=== PATIENT | male | born 1980 | race Two or more races ===

== ENCOUNTER 2022-11-14 18:21 | Inpatient (IN) | payer BC ==
[~2022-11-14] VITALS: Ht 185.4 cm; Wt 79.6 kg
[2022-11-14] MEDS ORDERED: SODIUM CHLORIDE 0.9% 1,000 ML IV ONE (19:00)
[2022-11-14 19:36] LABS: Urine Bacteria FEW /hpf (None Seen); Urine Blood TRACE /uL (Negative); Urine Clarity Clear (Clear); Urine Color Colorless (Yellow); Urine Protein, UAD 2+ (Negative); Urine Specific Gravity 1.036 (1.001-1.035); Urine Urobilinogen Normal (Negative); Urine WBC 1 /hpf (0 - 3); Urine pH 5.5 (5.0-8.0)
[2022-11-14 19:37] LABS: Basophils # (auto) 0.1 10 ^3/uL (0-0.2); Basophils % (auto) 0.8 % (0.0-2.0); Eosinophils # (auto) 0.1 10 ^3/uL (0-0.8); Eosinophils % (auto) 0.7 % (0.0-7.0); Hematocrit 50.4 % (41.0-53.0); Hemoglobin 16.8 g/dL (13.5-17.5); Lymphocytes # (auto) 2.5 10 ^3/uL (0.4-5.4); Lymphocytes % (auto) 28.1 % (10.0-50.0); Mean Corpuscular Hemoglobin 28.4 pg (28.0-32.0); Mean Corpuscular Hgb Conc. 33.2 g/dL (32.0-36.0); Mean Corpuscular Volume 85.6 fL (80.0-100.0); Monocytes # (auto) 0.4 10 ^3/uL (0-1.3); Neutrophils # (auto) 5.9 10 ^3/uL (1.6-8.6); Neutrophils % (auto) 66.4 % (37.0-80.0); Nucleated Red Blood Cells % 0.1 %; Red Blood Cells 5.89 10^6/uL (4.5-5.90); Red Cell Distribution Width 13.4 % (11.8-14.3); White Blood Cell 8.9 10^3/uL (4.4-10.8)
[2022-11-14 19:59] LABS: Alanine Aminotransferase 24 U/L (7-40); Albumin 5.2 g/dL (3.2-4.8); Alkaline Phosphatase 97 U/L (46-116); Anion Gap 22 (5-15); Aspartate Aminotransferase 9 U/L (13-40); BUN/Creatinine Ratio 11.1 (10.0-20.0); Bilirubin, Total 0.5 mg/dL (0.2-1.0); Blood Urea Nitrogen 22 mg/dL (9-23); Calcium 10.7 mg/dL (8.7-10.4); Carbon Dioxide 14 mmol/L (20-30); Chloride 98 mmol/L (98-107); Sodium 134 mmol/L (136-145); Total Protein 9.1 g/dL (5.7-8.2)
[2022-11-14 20:13] LABS: Glucose 567 mg/dL (74-106)
[2022-11-14] MEDS ORDERED: InsuLIN REG 1unit/0.01ml Soln (100units/ml) IV ONE (20:30)
[2022-11-14] MEDS ORDERED: DEXTROSE (50%) 50ML SYRG IV PRN (22:45)
[2022-11-14] MEDS ORDERED: INSULIN LANTUS (GLARGINE) 1 /0.01ml (100units/ml) SC ONE (22:45)
[2022-11-14] MEDS ORDERED: ONDANSETRON HCL 4 MG/2 ML VIAL IV PRN (23:00)
[2022-11-14] MEDS ORDERED: MORPHINE SULFATE INJ 2 MG/ml SYRG IV PRN (23:00)
[2022-11-14] MEDS ORDERED: ACETAMINOPHEN 325 MG TAB PO PRN (23:00)
[2022-11-14] MEDS ORDERED: DOCUSATE SOD 100 MG CAP PO PRN (23:00)
[2022-11-14] MEDS ORDERED: NITROGLYCERIN 0.4 MG SL TAB SL PRN (23:00)
[2022-11-14 23:15] VITALS: PULSE 86; RESP 15; O2SAT 98
[2022-11-14 23:16] LABS: Magnesium 2.2 mg/dL (1.6-2.6)
[2022-11-14 23:18] LABS: Phosphorus 4.1 mg/dL (2.4-5.1)
[2022-11-15] MEDS: ACCU-CHEK COMFORT CURVE STRIP VI SCH ×11 (00:27→23:21)
[2022-11-15] MEDS ORDERED: InsuLIN REG 1unit/0.01ml Soln (100units/ml) ONE (00:33)
[2022-11-15] MEDS: InsuLIN R (HUMAN) 100 UNITS in SODIUM CHL 0.9% 99 ML IV SCH ×2 (00:35→01:30)
[2022-11-15] MEDS: SODIUM CHLORIDE 0.9% 1,000 ML IV SCH ×5 (00:36→18:09)
[2022-11-15] MEDS ORDERED: SODIUM CHLORIDE 0.9% 1,000 ML IV SCH (02:45)
[2022-11-15 04:23] LABS: Basophils # (auto) 0 10 ^3/uL (0-0.2); Basophils % (auto) 0.5 % (0.0-2.0); Eosinophils # (auto) 0 10 ^3/uL (0-0.8); Eosinophils % (auto) 0.1 % (0.0-7.0); Hematocrit 43.6 % (41.0-53.0); Hemoglobin 14.9 g/dL (13.5-17.5); Lymphocytes % (auto) 21.9 % (10.0-50.0); Mean Corpuscular Hemoglobin 28.8 pg (28.0-32.0); Mean Corpuscular Hgb Conc. 34.2 g/dL (32.0-36.0); Mean Corpuscular Volume 84.1 fL (80.0-100.0); Monocytes # (auto) 0.6 10 ^3/uL (0-1.3); Monocytes % (auto) 6.7 % (0.0-12.0); Neutrophils # (auto) 6.5 10 ^3/uL (1.6-8.6); Neutrophils % (auto) 70.8 % (37.0-80.0); Red Blood Cells 5.18 10^6/uL (4.5-5.90); Red Cell Distribution Width 13.1 % (11.8-14.3); White Blood Cell 9.1 10^3/uL (4.4-10.8)
[2022-11-15 04:33] LABS: Alanine Aminotransferase 22 U/L (7-40); Albumin 4.4 g/dL (3.2-4.8); Alkaline Phosphatase 70 U/L (46-116); Anion Gap 14 (5-15); Aspartate Aminotransferase < 8 U/L (13-40); BUN/Creatinine Ratio 9.7 (10.0-20.0); Blood Urea Nitrogen 15 mg/dL (9-23); Calcium 9.5 mg/dL (8.5-10.1); Carbon Dioxide 16 mmol/L (20-30); LDL Cholesterol 104 mg/dL (< 100); Potassium 4.5 mmol/L (3.5-5.1); Sodium 142 mmol/L (136-145); Triglycerides 161 mg/dL (< 150)
[2022-11-15 04:34] LABS: Bilirubin, Total 0.6 mg/dL (0.2-1.0); Cholesterol 186 mg/dL (< 200); HDL Cholesterol 40 mg/dL (40-59); Total Protein 7.9 g/dL (5.7-8.2)
[2022-11-15 04:35] LABS: Chloride 112 mmol/L (98-107); Glucose 264 mg/dL (74-106)
[2022-11-15 08:32] VITALS: PULSE 82; RESP 16; O2SAT 95
[2022-11-15 10:30] LABS: Chloride 115 mmol/L (98-107); Sodium 145 mmol/L (136-145)
[2022-11-15 10:31] LABS: Anion Gap 9 (5-15); Carbon Dioxide 21 mmol/L (20-30)
[2022-11-15 10:37] LABS: BUN/Creatinine Ratio 9.4 (10.0-20.0); Blood Urea Nitrogen 12 mg/dL (9-23); Glucose 181 mg/dL (74-106)
[2022-11-15] MEDS: INSULIN LANTUS (GLARGINE) 1 /0.01ml (100units/ml) SC SCH (11:40)
[2022-11-15] MEDS ORDERED: ATORVASTATIN 20 MG TAB PO ONE (11:45)
[2022-11-15] MEDS ORDERED: DEXTROSE (50%) 50ML SYRG IV PRN (11:45)
[2022-11-15] MEDS: InsuLIN REG 1unit/0.01ml Soln (100units/ml) SC SCH ×3 (12:56→23:21)
[2022-11-15 16:46] LABS: Chloride 112 mmol/L (98-107); Potassium 3.6 mmol/L (3.5-5.1); Sodium 142 mmol/L (136-145)
[2022-11-15 16:47] LABS: Anion Gap 10 (5-15); Carbon Dioxide 20 mmol/L (20-30)
[2022-11-15 16:48] LABS: Calcium 8.9 mg/dL (8.5-10.1)
[2022-11-15 16:52] LABS: BUN/Creatinine Ratio 9.1 (10.0-20.0); Blood Urea Nitrogen 12 mg/dL (9-23)
[2022-11-15 16:53] LABS: Glucose 341 mg/dL (74-106)
[2022-11-15 19:30] VITALS: PULSE 76; RESP 12; O2SAT 95
[2022-11-15 22:31] VITALS: BP 120/74; PULSE 78; RESP 18; TEMP 97.6; O2SAT 98
[2022-11-16] MEDS: SODIUM CHLORIDE 0.9% 1,000 ML IV SCH ×3 (00:45→14:05)
[2022-11-16] MEDS: InsuLIN REG 1unit/0.01ml Soln (100units/ml) SC SCH ×3 (06:00→18:34)
[2022-11-16] MEDS: ACCU-CHEK COMFORT CURVE STRIP VI SCH ×3 (06:00→18:27)
[2022-11-16 08:00] VITALS: BP 113/74; PULSE 58; PULSE 89; RESP 16; O2SAT 96
[2022-11-16] MEDS: INSULIN LANTUS (GLARGINE) 1 /0.01ml (100units/ml) SC SCH (10:00)
[2022-11-16] MEDS ORDERED: INSU100I49 SC (11:06)
[2022-11-16] MEDS ORDERED: INSLANTI SC (11:06)
[2022-11-16] MEDS ORDERED: METF-370 PO (11:06)
[2022-11-16 11:19] LABS: Anion Gap 7 (5-15); BUN/Creatinine Ratio 10.5 (10.0-20.0); Blood Urea Nitrogen 11 mg/dL (9-23); Carbon Dioxide 24 mmol/L (20-30); Chloride 111 mmol/L (98-107); Glucose 271 mg/dL (74-106); Potassium 3.3 mmol/L (3.5-5.1); Sodium 142 mmol/L (136-145)
[2022-11-16 11:42] LABS: Basophils # (auto) 0.1 10 ^3/uL (0-0.2); Basophils % (auto) 0.9 % (0.0-2.0); Eosinophils # (auto) 0.1 10 ^3/uL (0-0.8); Eosinophils % (auto) 1.5 % (0.0-7.0); Hematocrit 37.9 % (41.0-53.0); Hemoglobin 12.9 g/dL (13.5-17.5); Lymphocytes # (auto) 1.7 10 ^3/uL (0.4-5.4); Lymphocytes % (auto) 29.7 % (10.0-50.0); Mean Corpuscular Hemoglobin 28.7 pg (28.0-32.0); Mean Corpuscular Hgb Conc. 33.9 g/dL (32.0-36.0); Mean Corpuscular Volume 84.6 fL (80.0-100.0); Monocytes # (auto) 0.3 10 ^3/uL (0-1.3); Monocytes % (auto) 4.5 % (0.0-12.0); Neutrophils # (auto) 3.7 10 ^3/uL (1.6-8.6); Neutrophils % (auto) 63.4 % (37.0-80.0); Nucleated Red Blood Cells % 0.1 %; Red Blood Cells 4.48 10^6/uL (4.5-5.90); Red Cell Distribution Width 13.2 % (11.8-14.3); White Blood Cell 5.9 10^3/uL (4.4-10.8)
[2022-11-16 16:58] VITALS: BP 122/78; PULSE 79; RESP 20; TEMP 97.8; O2SAT 96
[2022-11-16] MEDS ORDERED: ATORVASTATIN 20 MG TAB PO SCH (22:00)
== END 2022-11-16 18:48 | disposition home or self-care (01) | DRG 638 ==
LOC: ER 18:21 → TELE 23:00 → TELE-CENTR 11-15 22:35
PROVIDERS: ADMIT Internal Medicine Pulmonary Disease; ATTEND Student in an Organized Health Care Education/Training Program
DX: E11.10 Type 2 diabetes mellitus with ketoacidosis without coma (principal); E87.1 Hypo-osmolality and hyponatremia; N17.9 Acute kidney failure, unspecified; Z91.148 Patient's other noncompliance with medication regimen for other reason
CPT/HCPCS: 36415; 36600; 80048; 80053; 80061; 81001; 82010; 82805; 82962; 83036; 83735; 83930; 84100; 85025; 93005; 96361; 96365; 96375; G0378; J1815

== ENCOUNTER 2023-01-01 21:13 | Inpatient (IN) | payer BC ==
[~2023-01-01] VITALS: Ht 180.3 cm; Wt 64.5 kg
[~2023-01-01 21:13] MED LIST: INSLANTI SC; INSU100I49 SC; METF-370 PO
[2023-01-01] MEDS ORDERED: SODIUM CHLORIDE 0.9% 1,000 ML IV ONE ×2 (21:45→23:00)
[2023-01-01 21:55] VITALS: PULSE 107; RESP 16; O2SAT 96
[2023-01-01 22:35] LABS: Basophils # (auto) 0 10 ^3/uL (0-0.2); Basophils % (auto) 0.5 % (0.0-2.0); Eosinophils # (auto) 0 10 ^3/uL (0-0.8); Hemoglobin 17.6 g/dL (13.5-17.5); Lymphocytes # (auto) 1.3 10 ^3/uL (0.4-5.4); Lymphocytes % (auto) 16.1 % (10.0-50.0); Mean Corpuscular Hemoglobin 29.3 pg (28.0-32.0); Mean Corpuscular Volume 91.5 fL (80.0-100.0); Monocytes # (auto) 0.3 10 ^3/uL (0-1.3); Monocytes % (auto) 4.2 % (0.0-12.0); Neutrophils # (auto) 6.3 10 ^3/uL (1.6-8.6); Neutrophils % (auto) 79.2 % (37.0-80.0); Nucleated Red Blood Cells % 0.2 %; Red Blood Cells 6.01 10^6/uL (4.5-5.90); Red Cell Distribution Width 15.7 % (11.8-14.3)
[2023-01-01 22:37] LABS: Alanine Aminotransferase 12 U/L (7-40); Albumin 5.2 g/dL (3.2-4.8); Alkaline Phosphatase 82 U/L (46-116); Anion Gap 26.00001 (5-15); Aspartate Aminotransferase < 8 U/L (13-40); BUN/Creatinine Ratio 4.9 (10.0-20.0); Blood Urea Nitrogen 11 mg/dL (9-23); Calcium 10.9 mg/dL (8.5-10.1); Chloride 101 mmol/L (98-107); Potassium 4.7 mmol/L (3.5-5.1); Sodium 137 mmol/L (136-145)
[2023-01-01 22:38] LABS: Bilirubin, Total 0.5 mg/dL (0.2-1.0); Total Protein 9.1 g/dL (5.7-8.2)
[2023-01-01] MEDS ORDERED: MORPHINE SULFATE 4 MG/ML SYR/VIAL IV ONE (22:45)
[2023-01-01 22:48] LABS: Carbon Dioxide < 10 mmol/L (20-30); Glucose 573 mg/dL (74-106)
[2023-01-01] MEDS ORDERED: DEXTROSE (50%) 50ML SYRG IV PRN (23:00)
[2023-01-01] MEDS ORDERED: POTASSIUM CHL 20MEQ/100ML 100 ML IV PRN (23:00)
[2023-01-01] MEDS ORDERED: INSULIN DRIP 100 UNIT/100ML 100 ML IV SCH (23:00)
[2023-01-01 23:06] LABS: Lipase 81 U/L (12-53)
[2023-01-01] MEDS ORDERED: NITROGLYCERIN 0.4 MG SL TAB SL PRN (23:30)
[2023-01-01] MEDS ORDERED: MORPHINE SULFATE INJ 2 MG/ml SYRG IV PRN (23:30)
[2023-01-01] MEDS: ACCU-CHEK COMFORT CURVE STRIP VI SCH (23:52)
[2023-01-02] MEDS ORDERED: INSULIN DRIP 100 UNIT/100ML 100 ML IV SCH
[2023-01-02] MEDS ORDERED: SODIUM BICARBONATE 50ML VIAL 100 ML in SOD CHL 0.45% 1,000 ML IV ONE (00:15)
[2023-01-02] MEDS ORDERED: SODIUM BICARBONATE 8.4 % INJ 50ML VIAL IV ONE (00:24)
[2023-01-02] MEDS: ACCU-CHEK COMFORT CURVE STRIP VI SCH ×12 (01:43→22:00)
[2023-01-02 02:51] VITALS: PULSE 117; RESP 18; O2SAT 97
[2023-01-02 03:27] LABS: Urine Bacteria NONE SEEN /hpf (None Seen); Urine Blood TRACE /uL (Negative); Urine Clarity Clear (Clear); Urine Color Colorless (Yellow); Urine Protein, UAD 1+ (Negative); Urine Urobilinogen Normal (Negative); Urine WBC <1 /hpf (0 - 3); Urine pH 5.5 (5.0-8.0)
[2023-01-02] MEDS: SODIUM CHLORIDE 0.9% 1,000 ML IV SCH ×3 (06:01→18:50)
[2023-01-02 06:06] LABS: Albumin 4.7 g/dL (3.2-4.8); Alkaline Phosphatase 71 U/L (46-116); Anion Gap 18 (5-15); Aspartate Aminotransferase < 8 U/L (13-40); BUN/Creatinine Ratio 8.4 (10.0-20.0); Blood Urea Nitrogen 15 mg/dL (9-23); Calcium 10.4 mg/dL (8.5-10.1); Carbon Dioxide 16 mmol/L (20-30); Sodium 145 mmol/L (136-145)
[2023-01-02 06:07] LABS: Bilirubin, Total 0.5 mg/dL (0.2-1.0); Total Protein 8.1 g/dL (5.7-8.2)
[2023-01-02 06:29] LABS: Alanine Aminotransferase 12 U/L (7-40)
[2023-01-02 06:37] LABS: Chloride 111 mmol/L (98-107); Glucose 265 mg/dL (74-106)
[2023-01-02 06:38] LABS: Basophils # (auto) 0 10 ^3/uL (0-0.2); Basophils % (auto) 0.4 % (0.0-2.0); Eosinophils # (auto) 0 10 ^3/uL (0-0.8); Hematocrit 48.2 % (41.0-53.0); Lymphocytes # (auto) 1.3 10 ^3/uL (0.4-5.4); Lymphocytes % (auto) 14.4 % (10.0-50.0); Mean Corpuscular Hemoglobin 28.7 pg (28.0-32.0); Mean Corpuscular Hgb Conc. 33.2 g/dL (32.0-36.0); Mean Corpuscular Volume 86.5 fL (80.0-100.0); Monocytes # (auto) 0.9 10 ^3/uL (0-1.3); Monocytes % (auto) 9.6 % (0.0-12.0); Neutrophils # (auto) 6.9 10 ^3/uL (1.6-8.6); Neutrophils % (auto) 75.6 % (37.0-80.0); Nucleated Red Blood Cells % 0.2 %; Red Blood Cells 5.58 10^6/uL (4.5-5.90); Red Cell Distribution Width 14.5 % (11.8-14.3); White Blood Cell 9.2 10^3/uL (4.4-10.8)
[2023-01-02 07:45] VITALS: RESP 18; O2SAT 97
[2023-01-02] MEDS: ONDANSETRON HCL 4 MG/2 ML VIAL IV PRN (08:00)
[2023-01-02] MEDS: INSULIN LANTUS (GLARGINE) 1 /0.01ml (100units/ml) SC SCH (10:14)
[2023-01-02 12:10] LABS: Calcium 10.5 mg/dL (8.5-10.1); Chloride 113 mmol/L (98-107); Potassium 4.3 mmol/L (3.5-5.1); Sodium 146 mmol/L (136-145)
[2023-01-02 12:11] LABS: Anion Gap 10 (5-15); Carbon Dioxide 23 mmol/L (20-30)
[2023-01-02 12:16] LABS: BUN/Creatinine Ratio 9.5 (10.0-20.0); Blood Urea Nitrogen 15 mg/dL (9-23); Glucose 202 mg/dL (74-106)
[2023-01-02 18:29] LABS: Anion Gap 11 (5-15); Carbon Dioxide 24 mmol/L (20-30); Chloride 110 mmol/L (98-107); Sodium 145 mmol/L (136-145)
[2023-01-02 18:30] LABS: Calcium 10.1 mg/dL (8.7-10.4)
[2023-01-02 18:35] LABS: BUN/Creatinine Ratio 10.5 (10.0-20.0); Blood Urea Nitrogen 16 mg/dL (9-23)
[2023-01-02] MEDS ORDERED: DEXTROSE (50%) 50ML SYRG IV PRN (18:45)
[2023-01-02 18:54] LABS: Glucose 186 mg/dL (74-106)
[2023-01-02 19:30] VITALS: PULSE 88; RESP 12; O2SAT 98
[2023-01-02] MEDS: InsuLIN REG 1unit/0.01ml Soln (100units/ml) SC SCH (22:00)
[2023-01-03] MEDS: SODIUM CHLORIDE 0.9% 1,000 ML IV SCH ×4 (01:30→21:59)
[2023-01-03 05:29] LABS: Anion Gap 13 (5-15); Carbon Dioxide 21 mmol/L (20-30); Chloride 111 mmol/L (98-107); Potassium 3.4 mmol/L (3.5-5.1); Sodium 145 mmol/L (136-145)
[2023-01-03 05:30] LABS: Calcium 9.8 mg/dL (8.7-10.4)
[2023-01-03 05:35] LABS: BUN/Creatinine Ratio 11.9 (10.0-20.0); Blood Urea Nitrogen 17 mg/dL (9-23); Magnesium 2.1 mg/dL (1.6-2.6)
[2023-01-03 05:51] LABS: Glucose 253 mg/dL (74-106)
[2023-01-03] MEDS: ACCU-CHEK COMFORT CURVE STRIP VI SCH ×4 (06:51→21:59)
[2023-01-03] MEDS: InsuLIN REG 1unit/0.01ml Soln (100units/ml) SC SCH ×4 (06:52→21:58)
[2023-01-03] MEDS ORDERED: POTASSIUM CHL 20 Meq TABLET PO ONE (08:15)
[2023-01-03] MEDS: INSULIN LANTUS (GLARGINE) 1 /0.01ml (100units/ml) SC SCH (09:57)
[2023-01-03 10:05] VITALS: BP 105/72; PULSE 71; RESP 18; TEMP 97.8; O2SAT 97
[2023-01-03] MEDS: ONDANSETRON HCL 4 MG/2 ML VIAL IV PRN (11:17)
[2023-01-03 13:00] VITALS: BP 114/63; PULSE 67; RESP 16; TEMP 97.6; O2SAT 98
[2023-01-03 17:00] VITALS: BP 114/63; PULSE 60; RESP 14; TEMP 97.8; O2SAT 97
[2023-01-03 20:00] VITALS: RESP 16; O2SAT 95
[2023-01-03 22:00] VITALS: BP 124/70; PULSE 73; RESP 18; TEMP 97.8; O2SAT 98
[2023-01-04] MEDS: SODIUM CHLORIDE 0.9% 1,000 ML IV SCH ×2 (04:10→10:35)
[2023-01-04 05:00] VITALS: BP 90/61; PULSE 67; RESP 20; TEMP 97.9; O2SAT 95
[2023-01-04] MEDS: ACCU-CHEK COMFORT CURVE STRIP VI SCH ×2 (06:10→11:36)
[2023-01-04] MEDS: InsuLIN REG 1unit/0.01ml Soln (100units/ml) SC SCH ×2 (06:10→11:58)
[2023-01-04 07:03] LABS: Basophils # (auto) 0 10 ^3/uL (0-0.2); Basophils % (auto) 0.9 % (0.0-2.0); Eosinophils # (auto) 0.1 10 ^3/uL (0-0.8); Eosinophils % (auto) 1.9 % (0.0-7.0); Hematocrit 35.2 % (41.0-53.0); Hemoglobin 12.1 g/dL (13.5-17.5); Lymphocytes # (auto) 2.4 10 ^3/uL (0.4-5.4); Lymphocytes % (auto) 42.7 % (10.0-50.0); Mean Corpuscular Hemoglobin 29.5 pg (28.0-32.0); Mean Corpuscular Hgb Conc. 34.4 g/dL (32.0-36.0); Mean Corpuscular Volume 85.8 fL (80.0-100.0); Monocytes # (auto) 0.3 10 ^3/uL (0-1.3); Monocytes % (auto) 5.4 % (0.0-12.0); Neutrophils # (auto) 2.7 10 ^3/uL (1.6-8.6); Neutrophils % (auto) 49.1 % (37.0-80.0); Nucleated Red Blood Cells % 0.1 %; Red Blood Cells 4.11 10^6/uL (4.5-5.90); Red Cell Distribution Width 14.2 % (11.8-14.3); White Blood Cell 5.5 10^3/uL (4.4-10.8)
[2023-01-04 07:15] LABS: Alanine Aminotransferase 11 U/L (7-40); Albumin 3.2 g/dL (3.2-4.8); Alkaline Phosphatase 52 U/L (46-116); Anion Gap 6 (5-15); Aspartate Aminotransferase < 8 U/L (13-40); BUN/Creatinine Ratio 17.5 (10.0-20.0); Bilirubin, Total 0.7 mg/dL (0.2-1.0); Blood Urea Nitrogen 17 mg/dL (9-23); Calcium 9.2 mg/dL (8.5-10.1); Carbon Dioxide 25 mmol/L (20-30); Chloride 113 mmol/L (98-107); Glucose 175 mg/dL (74-106); Potassium 3.2 mmol/L (3.5-5.1); Sodium 144 mmol/L (136-145); Total Protein 5.4 g/dL (5.7-8.2)
[2023-01-04 08:00] VITALS: BP 103/67; PULSE 56; RESP 16; TEMP 97.8; O2SAT 94
[2023-01-04] MEDS ORDERED: POTASSIUM CHL 20 Meq TABLET PO ONE (08:00)
[2023-01-04 09:00] VITALS: BP 103/67; PULSE 56; RESP 16; TEMP 97.8; O2SAT 94
[2023-01-04] MEDS: INSULIN LANTUS (GLARGINE) 1 /0.01ml (100units/ml) SC SCH (10:37)
[2023-01-04 11:25] VITALS: BP 103/67; PULSE 56; RESP 16; TEMP 97.8; O2SAT 94
[2023-01-04 13:40] LABS: Magnesium 1.6 mg/dL (1.6-2.6)
== END 2023-01-04 12:03 | disposition home or self-care (01) | DRG 638 ==
LOC: ER 21:13 → TELE 23:21 → TELE-WESTW 01-03 10:09 → WEST WING 01-03 11:09
PROVIDERS: ADMIT Nurse Practitioner; ATTEND Internal Medicine Geriatric Medicine
DX: E10.10 Type 1 diabetes mellitus with ketoacidosis without coma (principal); N17.9 Acute kidney failure, unspecified; E86.0 Dehydration; E87.6 Hypokalemia; Z91.199 Patient's noncompliance with other medical treatment and regimen due to unspecified reason
CPT/HCPCS: 36415; 36600; 80048; 80053; 81001; 82010; 82805; 82962; 83690; 83735; 85025; 99291; G0378; J1815; J2405

== ENCOUNTER 2023-07-28 13:51 | Inpatient (IN) | payer BC, MEDICAID ==
[~2023-07-28] VITALS: Ht 180.3 cm; Wt 67.1 kg
[~2023-07-28 13:51] MED LIST changes: -METF-370 PO; +METF-372 PO; +MIDO10TA3 PO
[2023-07-28 14:22] LABS: Basophils # (auto) 0 10 ^3/uL (0-0.2); Basophils % (auto) 0.5 % (0.0-2.0); Eosinophils # (auto) 0 10 ^3/uL (0-0.8); Hematocrit 51.7 % (41.0-53.0); Hemoglobin 17.3 g/dL (13.5-17.5); Lymphocytes # (auto) 1.3 10 ^3/uL (0.4-5.4); Lymphocytes % (auto) 13.4 % (10.0-50.0); Mean Corpuscular Hemoglobin 30.9 pg (28.0-32.0); Mean Corpuscular Hgb Conc. 33.6 g/dL (32.0-36.0); Monocytes # (auto) 0.4 10 ^3/uL (0-1.3); Monocytes % (auto) 4.3 % (0.0-12.0); Neutrophils # (auto) 7.8 10 ^3/uL (1.6-8.6); Neutrophils % (auto) 81.8 % (37.0-80.0); Nucleated Red Blood Cells % 0.1 %; Red Blood Cells 5.61 10^6/uL (4.5-5.90); Red Cell Distribution Width 14.3 % (11.8-14.3); White Blood Cell 9.6 10^3/uL (4.4-10.8)
[2023-07-28 14:42] LABS: INR 0.9 (0.9-1.15); Partial Thromboplastin Time 25.2 SEC (24.5-34.5); Prothrombin Time 9.6 sec (9.3-11.8)
[2023-07-28 14:53] LABS: Alanine Aminotransferase 30 U/L (7-40); Albumin 5.1 g/dL (3.2-4.8); Alkaline Phosphatase 85 U/L (46-116); Anion Gap 23.00001 (5-15); Aspartate Aminotransferase < 8 U/L (13-40); BUN/Creatinine Ratio 7.1 (10.0-20.0); Blood Urea Nitrogen 14 mg/dL (9-23); Calcium 10.3 mg/dL (8.5-10.1); Chloride 105 mmol/L (98-107); Glucose 358 mg/dL (74-106); Potassium 4.4 mmol/L (3.5-5.1); Sodium 138 mmol/L (136-145); Total Protein 8.5 g/dL (5.7-8.2)
[2023-07-28 14:54] LABS: Bilirubin, Total 0.4 mg/dL (0.2-1.0)
[2023-07-28 14:58] LABS: Carbon Dioxide < 10 mmol/L (20-30)
[2023-07-28 15:07] VITALS: PULSE 109; RESP 17; O2SAT 96
[2023-07-28] MEDS: SODIUM CHLORIDE 0.9% 2,000 ML IV ONE ×2 (15:15→15:17)
[2023-07-28] MEDS: SODIUM CHLORIDE 0.9% 3,000 ML IV ONE (15:18)
[2023-07-28] MEDS: SODIUM CHLORIDE 0.9% 1,000 ML IV ONE (15:18)
[2023-07-28 15:22] LABS: Blood Alcohol < 3.0 mg/dL (<10)
[2023-07-28] MEDS: HYDROmorphone HCL 2 MG/ML VL/or syr IV ONE (15:23)
[2023-07-28] MEDS: ONDANSETRON HCL 4 MG/2 ML VIAL IV ONE (15:23)
[2023-07-28] MEDS: SODIUM BICARB 8.4% 50Meq/50ml SYR Vial IV ONE (15:27)
[2023-07-28] MEDS: InsuLIN REG 1unit/0.01ml Soln (100units/ml) IV ONE (15:40)
[2023-07-28 15:41] LABS: Lipase 55 U/L (12-53)
[2023-07-28] MEDS ORDERED: DEXTROSE (50%) 50ML SYRG IV PRN ×3 (15:45→23:45)
[2023-07-28] MEDS: INSULIN DRIP 100 UNIT/100ML 100 ML IV SCH (15:56)
[2023-07-28] MEDS: ACCU-CHEK COMFORT CURVE STRIP VI SCH ×2 (15:56→20:00)
[2023-07-28 16:18] LABS: Lactic Acid w/Reflex 2.4 mmol/L (0.4-2.0)
[2023-07-28] MEDS ORDERED: MORPHINE SULFATE INJ 2 MG/ml SYRG IV PRN ×2 (18:45)
[2023-07-28] MEDS ORDERED: NITROGLYCERIN 0.4 MG SL TAB SL PRN (18:45)
[2023-07-28] MEDS ORDERED: SODIUM CHLORIDE 0.9% 1,000 ML IV SCH ×2 (18:45→22:45)
[2023-07-28] MEDS ORDERED: DOCUSATE SOD 100 MG CAP PO PRN (18:45)
[2023-07-28] MEDS: PANTOPRAZOLE 40 MG/10 ML VIAL INJ IV ONE (18:59)
[2023-07-28] MEDS: MIDODRINE HCL 10 MG TAB PO SCH (19:03)
[2023-07-28 19:05] LABS: Base Excess -11.5 mmol/L (-2.0-2.0)
[2023-07-28] MEDS: INSULIN LANTUS (GLARGINE) 1 /0.01ml (100units/ml) SC ONE (19:12)
[2023-07-28 19:30] VITALS: PULSE 82; RESP 11; O2SAT 97
[2023-07-28] MEDS ORDERED: D5W/SOD CHLO 0.9% 1,000 ML IV SCH (19:30)
[2023-07-28 19:31] LABS: Potassium 2.9 mmol/L (3.5-5.1)
[2023-07-28 19:32] LABS: Anion Gap 15 (5-15); Carbon Dioxide 15 mmol/L (20-30)
[2023-07-28 19:33] LABS: Calcium 7.5 mg/dL (8.5-10.1)
[2023-07-28 19:37] LABS: BUN/Creatinine Ratio 7.6 (10.0-20.0); Blood Urea Nitrogen 9 mg/dL (9-23)
[2023-07-28 19:44] LABS: Glucose 176 mg/dL (74-106)
[2023-07-28 19:45] LABS: Chloride 118 mmol/L (98-107); Sodium 148 mmol/L (136-145)
[2023-07-28 20:00] LABS: Magnesium 1.5 mg/dL (1.6-2.6)
[2023-07-28] MEDS: D5W/SOD CHLO 0.9% 1,000 ML IV ONE (20:00)
[2023-07-28 20:01] LABS: Phosphorus 0.7 mg/dL (2.4-5.1)
[2023-07-28] MEDS: PANTOPRAZOLE 40 MG/10 ML VIAL INJ IV SCH (22:20)
[2023-07-29] MEDS: MIDODRINE HCL 10 MG TAB PO ONE (00:30)
[2023-07-29] MEDS: ACCU-CHEK COMFORT CURVE STRIP VI SCH (00:31)
[2023-07-29] MEDS: InsuLIN REG 1unit/0.01ml Soln (100units/ml) SC SCH (00:31)
[2023-07-29 00:42] LABS: Chloride 115 mmol/L (98-107); Potassium 2.9 mmol/L (3.5-5.1); Sodium 145 mmol/L (136-145)
[2023-07-29 00:43] LABS: Anion Gap 10 (5-15); Carbon Dioxide 20 mmol/L (20-30)
[2023-07-29 00:44] LABS: Calcium 9.1 mg/dL (8.7-10.4)
[2023-07-29] MEDS ORDERED: SODIUM CHLORIDE 0.9% 1,000 ML IV SCH (00:45)
[2023-07-29 00:48] LABS: BUN/Creatinine Ratio 7.7 (10.0-20.0); Blood Urea Nitrogen 9 mg/dL (9-23); Glucose 201 mg/dL (74-106)
[2023-07-29] MEDS: NOREPINEPHRINE 8 MG/250ML KIT 250 ML IV SCH (01:54)
[2023-07-29 05:18] LABS: Basophils # (auto) 0 10 ^3/uL (0-0.2); Basophils % (auto) 0.4 % (0.0-2.0); Eosinophils # (auto) 0 10 ^3/uL (0-0.8); Eosinophils % (auto) 0.3 % (0.0-7.0); Hematocrit 39.5 % (41.0-53.0); Hemoglobin 13.4 g/dL (13.5-17.5); Lymphocytes # (auto) 1.1 10 ^3/uL (0.4-5.4); Lymphocytes % (auto) 14.5 % (10.0-50.0); Mean Corpuscular Hemoglobin 30.4 pg (28.0-32.0); Mean Corpuscular Volume 89.5 fL (80.0-100.0); Monocytes # (auto) 0.6 10 ^3/uL (0-1.3); Monocytes % (auto) 8.2 % (0.0-12.0); Neutrophils # (auto) 5.9 10 ^3/uL (1.6-8.6); Neutrophils % (auto) 76.6 % (37.0-80.0); Red Blood Cells 4.41 10^6/uL (4.5-5.90); Red Cell Distribution Width 14.2 % (11.8-14.3); White Blood Cell 7.7 10^3/uL (4.4-10.8)
[2023-07-29 05:39] LABS: Alanine Aminotransferase 22 U/L (7-40); Albumin 3.6 g/dL (3.2-4.8); Alkaline Phosphatase 58 U/L (46-116); Anion Gap 12 (5-15); Aspartate Aminotransferase < 8 U/L (13-40); BUN/Creatinine Ratio 10.3 (10.0-20.0); Blood Urea Nitrogen 12 mg/dL (9-23); Calcium 9.4 mg/dL (8.5-10.1); Carbon Dioxide 19 mmol/L (20-30); Chloride 115 mmol/L (98-107); Glucose 181 mg/dL (74-106); Potassium 3.1 mmol/L (3.5-5.1); Sodium 146 mmol/L (136-145)
[2023-07-29 05:40] LABS: Bilirubin, Total 0.5 mg/dL (0.2-1.0); Total Protein 5.9 g/dL (5.7-8.2)
[2023-07-29 06:13] LABS: Lipase 53 U/L (12-53)
[2023-07-29] MEDS: POTASSIUM CHL 20 Meq TABLET PO ONE (06:45)
[2023-07-29 07:20] VITALS: PULSE 58; RESP 16; O2SAT 95
[2023-07-29] MEDS: ONDANSETRON HCL 4 MG/2 ML VIAL IV PRN (08:08)
[2023-07-29] MEDS: INSULIN LANTUS (GLARGINE) 1 /0.01ml (100units/ml) SC SCH (09:44)
[2023-07-29 12:57] LABS: Urine Bacteria None Seen /hpf (None Seen); Urine WBC None Seen /hpf (0 - 3)
[2023-07-29 13:02] LABS: Chloride 114 mmol/L (98-107); Potassium 3.3 mmol/L (3.5-5.1); Sodium 144 mmol/L (136-145)
[2023-07-29 13:03] LABS: Anion Gap 10 (5-15); Carbon Dioxide 20 mmol/L (20-30)
[2023-07-29 13:04] LABS: Calcium 9.8 mg/dL (8.5-10.1)
[2023-07-29 13:06] LABS: Urine Blood Negative /uL (Negative); Urine Clarity Ex.Turbid (Clear); Urine Color Light-Orange (Yellow); Urine Mucus FEW (None Seen); Urine Protein, UAD 1+ (Negative); Urine Specific Gravity 1.025 (1.001-1.035); Urine Urobilinogen Normal (Negative); Urine pH 6.5 (5.0-9.0)
[2023-07-29 13:08] LABS: Glucose 156 mg/dL (74-106)
[2023-07-29 13:09] LABS: BUN/Creatinine Ratio 6.2 (10.0-20.0); Blood Urea Nitrogen 7 mg/dL (9-23)
[2023-07-29 13:14] LABS: Sodium Urine 23 mmol/L (40-220)
[2023-07-29] MEDS: SODIUM CHLORIDE 0.9% 1,000 ML IV SCH (13:15)
[2023-07-29 13:20] LABS: Amphetamine Screen, Urine Neg (NEGATIVE); Barbiturate Scree,Urine Neg (NEGATIVE); Benzodiazephine Screen, Urine Neg (NEGATIVE); Cannabinoid Screen, Urine Neg (NEGATIVE); Cocaine Screen, Urine Neg (NEGATIVE); Opiate Scree,Urine Neg (NEGATIVE); Phencyclidine Screen, Urine Neg (NEGATIVE)
[2023-07-29 13:21] LABS: Creatinine, Urine 160.42 mg/dL (30.0-125.0)
[2023-07-29 19:30] VITALS: PULSE 55; RESP 12; O2SAT 98
[2023-07-29 23:17] VITALS: BP 105/84; PULSE 64; RESP 17; TEMP 97.7; TEMP 98; O2SAT 97
[2023-07-29] MEDS ORDERED: INSU100I70 SC (23:50)
[2023-07-30] VITALS (7 sets, daily range): BP systolic 85–102; BP diastolic 55–71; PULSE 47–65; RESP 14–17; TEMP 36.7; O2SAT 96–98
[2023-07-30 15:40] LABS: Chloride 109 mmol/L (98-107); Sodium 139 mmol/L (136-145)
[2023-07-30 15:41] LABS: Anion Gap 7 (5-15); Carbon Dioxide 23 mmol/L (20-30)
[2023-07-30 15:42] LABS: Calcium 8.6 mg/dL (8.5-10.1)
[2023-07-30 15:46] LABS: BUN/Creatinine Ratio 7.7 (10.0-20.0); Blood Urea Nitrogen 7 mg/dL (9-23)
[2023-07-30 15:51] LABS: Glucose 333 mg/dL (74-106)
[2023-07-30] MEDS ORDERED: BLOO1KIT60 XX (16:13)
[2023-07-30] MEDS ORDERED: MIDO10TA3 PO (16:13)
[2023-07-30] MEDS ORDERED: INSU-567 XX (16:13)
[2023-07-30] MEDS ORDERED: INSLANTI SC (16:13)
== END 2023-07-30 18:47 | disposition home or self-care (01) | DRG 420 ==
LOC: ER 13:51 → TELE 18:40 → TELE-CENTR 07-29 23:13
PROVIDERS: ADMIT Nurse Practitioner Family; ATTEND Internal Medicine
DX: E11.10 Type 2 diabetes mellitus with ketoacidosis without coma (principal); R57.1 Hypovolemic shock; N17.0 Acute kidney failure with tubular necrosis; K85.90 Acute pancreatitis without necrosis or infection, unspecified; E86.0 Dehydration; I10 Essential (primary) hypertension; Z79.4 Long term (current) use of insulin; Z91.148 Patient's other noncompliance with medication regimen for other reason; Z91.199 Patient's noncompliance with other medical treatment and regimen due to unspecified reason
CPT/HCPCS: 36415; 36600; 71045; 74176; 76705; 80048; 80053; 80307; 80320; 81001; 82010; 82570; 82805; 82962; 83605; 83690; 83735; 83930; 84100; 84300; 84484; 85025; 85610; 85730; 86803; 87340; 93005; 99291; C9113; G0378; J1815; J2405

== ENCOUNTER 2023-10-12 11:23 | Inpatient (IN) | payer MEDICAID ==
[~2023-10-12] VITALS: Ht 167.6 cm; Wt 66.5 kg
[~2023-10-12 11:23] MED LIST changes: +BLOO1KIT60 XX; +INSU-567 XX; +INSU100I70 SC
[2023-10-12 12:13] LABS: Urine Bacteria None Seen /hpf (None Seen); Urine WBC None Seen /hpf (0 - 3)
[2023-10-12 12:20] LABS: Urine Blood Negative /uL (Negative); Urine Clarity Clear (Clear); Urine Color Light-Yellow (Yellow); Urine Protein, UAD 1+ (Negative); Urine Urobilinogen Normal (Negative); Urine pH 5.5 (5.0-9.0)
[2023-10-12 12:50] LABS: Basophils # (auto) 0 10 ^3/uL (0-0.2); Basophils % (auto) 0.5 % (0.0-2.0); Eosinophils # (auto) 0 10 ^3/uL (0-0.8); Hematocrit 48.7 % (41.0-53.0); Hemoglobin 16.5 g/dL (13.5-17.5); Lymphocytes % (auto) 20.2 % (10.0-50.0); Mean Corpuscular Hemoglobin 30.6 pg (28.0-32.0); Mean Corpuscular Hgb Conc. 33.9 g/dL (32.0-36.0); Mean Corpuscular Volume 90.5 fL (80.0-100.0); Monocytes # (auto) 0.2 10 ^3/uL (0-1.3); Monocytes % (auto) 3.6 % (0.0-12.0); Neutrophils # (auto) 3.6 10 ^3/uL (1.6-8.6); Neutrophils % (auto) 75.7 % (37.0-80.0); Nucleated Red Blood Cells % 0.1 %; Platelet Count (auto) 220 10^3/uL (140-450); Red Blood Cells 5.39 10^6/uL (4.5-5.90); Red Cell Distribution Width 13.9 % (11.8-14.3); White Blood Cell 4.7 10^3/uL (4.4-10.8)
[2023-10-12 13:27] LABS: Alanine Aminotransferase 18 U/L (7-40); Albumin 4.6 g/dL (3.2-4.8); Alkaline Phosphatase 72 U/L (46-116); Anion Gap 19.00001 (5-15); Aspartate Aminotransferase < 8 U/L (13-40); BUN/Creatinine Ratio 5.4 (10.0-20.0); Bilirubin, Total 0.4 mg/dL (0.2-1.0); Blood Urea Nitrogen 9 mg/dL (9-23); Calcium 9.9 mg/dL (8.7-10.4); Chloride 105 mmol/L (98-107); Glucose 363 mg/dL (74-106); Potassium 4.1 mmol/L (3.5-5.1); Sodium 134 mmol/L (136-145); Total Protein 7.9 g/dL (5.7-8.2)
[2023-10-12 13:30] LABS: Carbon Dioxide < 10 mmol/L (20-30)
[2023-10-12 14:02] LABS: Base Excess -21.4 mmol/L (-2.0-3.0)
[2023-10-12] MEDS ORDERED: DEXTROSE (50%) 50ML SYRG IV PRN (14:15)
[2023-10-12] MEDS: ACCU-CHEK COMFORT CURVE STRIP VI SCH (15:00)
[2023-10-12] MEDS: SODIUM CHLORIDE 0.9% 1,000 ML IV ONE ×2 (15:15)
[2023-10-12 16:10] VITALS: PULSE 74; RESP 12; O2SAT 98
[2023-10-12] MEDS: INSULIN DRIP 100 UNIT/100ML 100 ML IV SCH (16:30)
[2023-10-12] MEDS: SODIUM BICARB 8.4% 50Meq/50ml SYR Vial IV ONE (16:32)
[2023-10-12 17:00] LABS: Calcium 9.3 mg/dL (8.7-10.4); Chloride 109 mmol/L (98-107); Potassium 4.1 mmol/L (3.5-5.1); Sodium 136 mmol/L (136-145)
[2023-10-12 17:01] LABS: Anion Gap 17.00001 (5-15)
[2023-10-12 17:06] LABS: BUN/Creatinine Ratio 5.1 (10.0-20.0); Blood Urea Nitrogen 7 mg/dL (9-23); Glucose 315 mg/dL (74-106)
[2023-10-12 17:09] LABS: Carbon Dioxide < 10 mmol/L (20-30)
[2023-10-12 20:06] LABS: Anion Gap 19 (5-15); Carbon Dioxide 11 mmol/L (20-30); Chloride 111 mmol/L (98-107); Potassium 3.6 mmol/L (3.5-5.1); Sodium 141 mmol/L (136-145)
[2023-10-12 20:07] LABS: Calcium 8.8 mg/dL (8.7-10.4)
[2023-10-12 20:11] LABS: Glucose 273 mg/dL (74-106)
[2023-10-12 20:12] LABS: Blood Urea Nitrogen 8 mg/dL (9-23)
[2023-10-12] MEDS ORDERED: HYDROcodone-ACET 5/325MG TAB PO PRN (21:30)
[2023-10-12] MEDS ORDERED: ACETAMINOPHEN 325 MG TAB PO PRN (21:30)
[2023-10-12] MEDS ORDERED: ONDANSETRON HCL 4 MG/2 ML VIAL IV PRN (21:30)
[2023-10-12] MEDS ORDERED: DOCUSATE SOD 100 MG CAP PO PRN (21:30)
[2023-10-12] MEDS: DOCUSATE SOD 100 MG CAP PO ONE (21:52)
[2023-10-12] MEDS ORDERED: NITROGLYCERIN 0.4 MG SL TAB SL PRN (22:45)
[2023-10-12] MEDS ORDERED: MORPHINE SULFATE INJ 2 MG/ml SYRG IV PRN (22:45)
[2023-10-13 00:33] VITALS: PULSE 77; RESP 12; O2SAT 98
[2023-10-13 02:23] LABS: Chloride 113 mmol/L (98-107); Potassium 3.1 mmol/L (3.5-5.1); Sodium 140 mmol/L (136-145)
[2023-10-13 02:24] LABS: Anion Gap 9 (5-15); Calcium 8.8 mg/dL (8.7-10.4); Carbon Dioxide 18 mmol/L (20-30)
[2023-10-13 02:29] LABS: BUN/Creatinine Ratio 7.7 (10.0-20.0); Blood Urea Nitrogen 11 mg/dL (9-23); Glucose 247 mg/dL (74-106)
[2023-10-13 04:45] LABS: Basophils # (auto) 0 10 ^3/uL (0-0.2); Basophils % (auto) 0.2 % (0.0-2.0); Eosinophils # (auto) 0 10 ^3/uL (0-0.8); Eosinophils % (auto) 0.7 % (0.0-7.0); Hematocrit 37.6 % (41.0-53.0); Hemoglobin 13.3 g/dL (13.5-17.5); Lymphocytes # (auto) 1.6 10 ^3/uL (0.4-5.4); Lymphocytes % (auto) 31.1 % (10.0-50.0); Mean Corpuscular Hgb Conc. 35.4 g/dL (32.0-36.0); Mean Corpuscular Volume 87.5 fL (80.0-100.0); Monocytes # (auto) 0.4 10 ^3/uL (0-1.3); Monocytes % (auto) 8.3 % (0.0-12.0); Neutrophils # (auto) 3.1 10 ^3/uL (1.6-8.6); Neutrophils % (auto) 59.7 % (37.0-80.0); Nucleated Red Blood Cells % 0.2 %; Platelet Count (auto) 153 10^3/uL (140-450); White Blood Cell 5.3 10^3/uL (4.4-10.8)
[2023-10-13] MEDS ORDERED: DEXTROSE (50%) 50ML SYRG IV PRN (04:45)
[2023-10-13 05:06] LABS: Alanine Aminotransferase 14 U/L (7-40); Albumin 3.4 g/dL (3.2-4.8); Alkaline Phosphatase 52 U/L (46-116); Anion Gap 8 (5-15); Aspartate Aminotransferase < 8 U/L (13-40); BUN/Creatinine Ratio 9.2 (10.0-20.0); Bilirubin, Total 0.5 mg/dL (0.2-1.0); Blood Urea Nitrogen 12 mg/dL (9-23); Calcium 8.8 mg/dL (8.7-10.4); Carbon Dioxide 20 mmol/L (20-30); Chloride 112 mmol/L (98-107); Glucose 249 mg/dL (74-106); Potassium 3.1 mmol/L (3.5-5.1); Sodium 140 mmol/L (136-145)
[2023-10-13] MEDS: D5W/SOD CHL 0.45%/KCL 20MEQ 1,000 ML IV SCH (05:06)
[2023-10-13 05:07] LABS: Total Protein 5.7 g/dL (5.7-8.2)
[2023-10-13 06:20] LABS: Amphetamine Screen, Urine Neg (NEGATIVE); Barbiturate Scree,Urine Neg (NEGATIVE); Benzodiazephine Screen, Urine Neg (NEGATIVE); Cannabinoid Screen, Urine Neg (NEGATIVE); Cocaine Screen, Urine Neg (NEGATIVE); Opiate Scree,Urine Neg (NEGATIVE); Phencyclidine Screen, Urine Neg (NEGATIVE)
[2023-10-13] MEDS: SODIUM CHLORIDE 0.9% 500 ML IV ONE ×2 (07:06→12:30)
[2023-10-13 07:30] VITALS: PULSE 99; RESP 10; O2SAT 99
[2023-10-13] MEDS: ACCU-CHEK COMFORT CURVE STRIP VI SCH (08:00)
[2023-10-13] MEDS: InsuLIN REG 1unit/0.01ml Soln (100units/ml) SC SCH (08:35)
[2023-10-13] MEDS: POTASSIUM CHL 20 Meq TABLET PO ONE (09:15)
[2023-10-13] MEDS: SODIUM CHLORIDE 0.9% 1,000 ML IV ONE ×2 (09:45→12:30)
[2023-10-13 10:29] LABS: Alanine Aminotransferase 17 U/L (7-40); Albumin 3.2 g/dL (3.2-4.8); Alkaline Phosphatase 50 U/L (46-116); Anion Gap 10 (5-15); Aspartate Aminotransferase < 8 U/L (13-40); BUN/Creatinine Ratio 10.2 (10.0-20.0); Bilirubin, Total 0.6 mg/dL (0.2-1.0); Blood Urea Nitrogen 12 mg/dL (9-23); Calcium 8.8 mg/dL (8.7-10.4); Carbon Dioxide 20 mmol/L (20-30); Chloride 110 mmol/L (98-107); Glucose 340 mg/dL (74-106); Potassium 3.6 mmol/L (3.5-5.1); Sodium 140 mmol/L (136-145); Total Protein 5.5 g/dL (5.7-8.2)
[2023-10-13] MEDS: FAMOTIDINE (10MG/ML) 2ML VL IV SCH (11:51)
[2023-10-13] MEDS ORDERED: VANCOMYCIN PER PHARMACY 0 MG IV SCH (14:00)
[2023-10-13] MEDS: PIPERACILLIN-TAZOB 3.375GM 100 ML IV SCH (14:46)
[2023-10-13] MEDS: VANCOMYCIN 1.25GM/250ML 250 ML IV ONE (15:09)
[2023-10-13] MEDS: SODIUM CHLORIDE 0.9% 1,000 ML IV SCH (15:15)
[2023-10-13] MEDS: POTASSIUM EFFERVESENT TAB 25 MEQ PO ONE (15:52)
[2023-10-13] MEDS: INSULIN LANTUS (GLARGINE) 1 /0.01ml (100units/ml) SC ONE (15:56)
[2023-10-13] MEDS: MAGNESIUM OXIDE 400 MG TAB PO ONE (15:57)
[2023-10-13] MEDS: ENOXAPARIN SOD 40 MG/0.4 ML SYRINGE SC ONE (16:59)
[2023-10-13 18:55] VITALS: O2SAT 95
[2023-10-13 20:00] VITALS: PULSE 64
[2023-10-13 22:00] VITALS: BP 93/56; PULSE 65; RESP 16; TEMP 98; O2SAT 96
[2023-10-14] VITALS (9 sets, daily range): BP systolic 86–139; BP diastolic 54–70; PULSE 52–71; RESP 16–19; TEMP 96.7–98.1; O2SAT 95–97
[2023-10-14] MEDS: VANCOMYCIN 750mg/150ml 150 ML IV SCH (05:09)
[2023-10-14 06:04] LABS: Alanine Aminotransferase 12 U/L (7-40); Albumin 2.9 g/dL (3.2-4.8); Alkaline Phosphatase 43 U/L (46-116); Anion Gap 6 (5-15); Aspartate Aminotransferase < 8 U/L (13-40); Bilirubin, Total 0.6 mg/dL (0.2-1.0); Blood Urea Nitrogen 8 mg/dL (9-23); Calcium 8.8 mg/dL (8.7-10.4); Carbon Dioxide 26 mmol/L (20-30); Chloride 110 mmol/L (98-107); Potassium 2.9 mmol/L (3.5-5.1); Sodium 142 mmol/L (136-145); Total Protein 4.9 g/dL (5.7-8.2)
[2023-10-14 06:11] LABS: Glucose 144 mg/dL (74-106)
[2023-10-14] MEDS: ENOXAPARIN SOD 40 MG/0.4 ML SYRINGE SC SCH (09:21)
[2023-10-14] MEDS: INSULIN LANTUS (GLARGINE) 1 /0.01ml (100units/ml) SC SCH (09:24)
[2023-10-14] MEDS: SOD CHL 0.45% 1,000 ML IV SCH (09:45)
[2023-10-14] MEDS: LACTULOSE 20Gm/30ML SOLN PO SCH (10:00)
[2023-10-14 10:27] LABS: Basophils # (auto) 0 10 ^3/uL (0-0.2); Basophils % (auto) 0.8 % (0.0-2.0); Eosinophils # (auto) 0 10 ^3/uL (0-0.8); Eosinophils % (auto) 0.8 % (0.0-7.0); Hematocrit 37.2 % (41.0-53.0); Hemoglobin 12.9 g/dL (13.5-17.5); Lymphocytes # (auto) 1.6 10 ^3/uL (0.4-5.4); Lymphocytes % (auto) 37.9 % (10.0-50.0); Mean Corpuscular Hemoglobin 30.1 pg (28.0-32.0); Mean Corpuscular Hgb Conc. 34.7 g/dL (32.0-36.0); Mean Corpuscular Volume 86.7 fL (80.0-100.0); Monocytes # (auto) 0.3 10 ^3/uL (0-1.3); Monocytes % (auto) 6.7 % (0.0-12.0); Neutrophils # (auto) 2.3 10 ^3/uL (1.6-8.6); Neutrophils % (auto) 53.8 % (37.0-80.0); Platelet Count (auto) 128 10^3/uL (140-450); Red Blood Cells 4.28 10^6/uL (4.5-5.90); Red Cell Distribution Width 13.9 % (11.8-14.3); White Blood Cell 4.2 10^3/uL (4.4-10.8)
[2023-10-14 10:38] LABS: Magnesium 1.6 mg/dL (1.6-2.6)
[2023-10-14 10:40] LABS: Phosphorus 1.9 mg/dL (2.4-5.1)
[2023-10-14] MEDS: POTASSIUM CHL 20MEQ/100ML 100 ML IV SCH (12:00)
[2023-10-14] MEDS: POTASSIUM PHOSPHATE 22 MEQ in SODIUM CHL 0.9% 100 ML IV ONE ×2 (13:30→19:00)
[2023-10-14] MEDS: CEFEPIME 1GM/ 50ML 50 ML IV ONE (17:04)
[2023-10-14] MEDS: MAGNESIUM SULFATE 1GM/100ML 100 ML IV ONE (21:58)
[2023-10-14] MEDS: CEFEPIME 1GM/ 50ML 50 ML IV SCH (22:14)
[2023-10-15 01:00] VITALS: BP_SYST 146; BP_SYST 91; BP_DIAS 60; BP_DIAS 73; PULSE 64; RESP 18; TEMP 98.3; O2SAT 96
[2023-10-15 05:00] VITALS: BP 94/59; PULSE 53; RESP 20; TEMP 97.6; O2SAT 96
[2023-10-15 07:30] VITALS: PULSE 64; RESP 19
[2023-10-15 09:00] VITALS: BP 99/65; PULSE 69; RESP 13; TEMP 98; O2SAT 99
[2023-10-15 10:17] LABS: Basophils # (auto) 0 10 ^3/uL (0-0.2); Basophils % (auto) 0.7 % (0.0-2.0); Eosinophils # (auto) 0 10 ^3/uL (0-0.8); Eosinophils % (auto) 0.5 % (0.0-7.0); Hematocrit 39.3 % (41.0-53.0); Hemoglobin 13.5 g/dL (13.5-17.5); Lymphocytes # (auto) 1.1 10 ^3/uL (0.4-5.4); Lymphocytes % (auto) 33.8 % (10.0-50.0); Mean Corpuscular Hgb Conc. 34.4 g/dL (32.0-36.0); Mean Corpuscular Volume 87.1 fL (80.0-100.0); Monocytes # (auto) 0.2 10 ^3/uL (0-1.3); Monocytes % (auto) 5.9 % (0.0-12.0); Neutrophils % (auto) 59.1 % (37.0-80.0); Nucleated Red Blood Cells % 0.1 %; Platelet Count (auto) 126 10^3/uL (140-450); Red Blood Cells 4.51 10^6/uL (4.5-5.90); Red Cell Distribution Width 13.6 % (11.8-14.3); White Blood Cell 3.4 10^3/uL (4.4-10.8)
[2023-10-15] MEDS ORDERED: GABAPENTIN 300 MG CAP PO SCH (10:30)
[2023-10-15 10:51] LABS: Alanine Aminotransferase 26 U/L (7-40); Albumin 2.9 g/dL (3.2-4.8); Alkaline Phosphatase 44 U/L (46-116); Anion Gap 5 (5-15); Aspartate Aminotransferase 30 U/L (13-40); BUN/Creatinine Ratio 7.4 (10.0-20.0); Blood Urea Nitrogen 6 mg/dL (9-23); Calcium 8.9 mg/dL (8.7-10.4); Carbon Dioxide 29 mmol/L (20-30); Chloride 103 mmol/L (98-107); Magnesium 1.5 mg/dL (1.6-2.6); Phosphorus 3.1 mg/dL (2.4-5.1); Potassium 3.4 mmol/L (3.5-5.1); Sodium 137 mmol/L (136-145)
[2023-10-15 10:52] LABS: Bilirubin, Total 0.5 mg/dL (0.2-1.0); Total Protein 4.8 g/dL (5.7-8.2)
[2023-10-15 11:02] LABS: Glucose 311 mg/dL (74-106)
[2023-10-15 13:00] VITALS: BP 92/56; PULSE 80; RESP 15; TEMP 98.3; O2SAT 97
[2023-10-15 13:04] LABS: Hepatitis B Surface Antigen Negative (Negative)
[2023-10-15] MEDS ORDERED: ACET-1882 PO (13:07)
[2023-10-15] MEDS ORDERED: LANC-636 XX (13:07)
[2023-10-15] MEDS ORDERED: LANCKIT12 XX (13:07)
[2023-10-15 13:25] LABS: Hepatitis C Antibody Negative (Negative)
[2023-10-15] MEDS: POTASSIUM CHL 20 Meq TABLET PO ONE (13:45)
[2023-10-15 15:32] VITALS: BP 98/75; PULSE 88; RESP 18; TEMP 98.5; O2SAT 98
[2023-10-16] MEDS ORDERED: LANCKIT12 XX (13:08)
== END 2023-10-15 15:55 | disposition home or self-care (01) | DRG 420 ==
LOC: ER 11:23 → TELE 22:42 → TELE-EAST 22:42
PROVIDERS: ADMIT Internal Medicine Pulmonary Disease; ATTEND Internal Medicine Pulmonary Disease
DX: E11.10 Type 2 diabetes mellitus with ketoacidosis without coma (principal); N17.0 Acute kidney failure with tubular necrosis; E83.39 Other disorders of phosphorus metabolism; K59.00 Constipation, unspecified; E87.6 Hypokalemia; E83.42 Hypomagnesemia; Z91.148 Patient's other noncompliance with medication regimen for other reason; Z79.84 Long term (current) use of oral hypoglycemic drugs
CPT/HCPCS: 36415; 36600; 71045; 74176; 80048; 80053; 80202; 80307; 81001; 82010; 82805; 82962; 83036; 83605; 83735; 83930; 84100; 85025; 86803; 87040; 87340; 97163; G0378; J1815; J2543; J3480; J3490